=== PATIENT | male | born 1990 | race Caucasian/White ===

== ENCOUNTER 2018-11-23 13:52 | Emergency (ER) | payer MEDICAID ==
[~2018-11-23] VITALS: Ht 157.5 cm; Wt 64.9 kg
[2018-11-23 14:00] VITALS: BP 144/85; Ht 157.5 cm; Wt 64.9 kg
== END 2018-11-23 18:00 | disposition home or self-care (01) ==
LOC: ED 13:52
DX: S62.522A Displaced fracture of distal phalanx of left thumb, initial encounter for closed fracture (principal); S61.012D Laceration without foreign body of left thumb without damage to nail, subsequent encounter; F17.210 Nicotine dependence, cigarettes, uncomplicated; Z71.6 Tobacco abuse counseling; W45.8XXA Other foreign body or object entering through skin, initial encounter; Y93.89 Activity, other specified; Y92.89 Other specified places as the place of occurrence of the external cause; Y99.8 Other external cause status
CPT/HCPCS: 90715; 99406

== ENCOUNTER 2018-11-26 12:06 | Emergency (ER) | payer MEDICAID ==
[~2018-11-26] VITALS: Ht 162.6 cm; Wt 53.5 kg
[2018-11-26 12:25] VITALS: BP 115/70; Ht 162.6 cm; Wt 53.5 kg
== END 2018-11-26 14:15 | disposition home or self-care (01) ==
LOC: ED 12:06
DX: S62.522D Displaced fracture of distal phalanx of left thumb, subsequent encounter for fracture with routine healing (principal); W20.8XXD Other cause of strike by thrown, projected or falling object, subsequent encounter

== ENCOUNTER 2020-11-24 12:03 | Emergency (ER) | payer MEDICAID ==
[~2020-11-24] VITALS: Ht 165.1 cm; Wt 66.7 kg
[2020-11-24 12:12] VITALS: BP 134/89; Ht 165.1 cm; Wt 66.7 kg
== END 2020-11-24 13:56 | disposition home or self-care (01) ==
LOC: ED 12:03
DX: S69.91XA Unspecified injury of right wrist, hand and finger(s), initial encounter (principal); X58.XXXA Exposure to other specified factors, initial encounter; Y93.89 Activity, other specified; Y92.89 Other specified places as the place of occurrence of the external cause; Y99.8 Other external cause status